=== PATIENT | female | born 1970 | race Caucasian/White ===

== ENCOUNTER → 2017-11-04 | Outpatient (CLI) | payer OTHER ==
[~2017-11-04] MED LIST: DARVOCET-N 1001 EACH PO; LEXAPRO20 MG; METHOTREXATE; PEPCID40 MG PO; PHENERGAN 25 MG25 M1 PO; REMICADE 1100 MG/VIA
--- NOTE | 2017-11-04 15:48 | 2DMMODE ---
[place] [address] 2 D/M-MODE ECHOCARDIOGRAM Name: HUNTERKRYSTAL Room: [facility]#: [id number] Admission: 11/04/17 Attend Phys: Jason Samaniego, Discharge: Date of : 70 Date of Service: 11/04/17 1548 Report #: [id number] THIS REPORT FOR: //name// APPROVED REPORT Study performed: 11/04/2017 09:56:51 EXAM: Comprehensive 2D, Doppler, and color-flow Echocardiogram Patient Location: Out-Patient Status: routine BSA: 2.20 HR: 75 bpm BP: 130/80 mmHg Other Information Study Quality: Good Indications Dyspnea Chest Pain 2D Dimensions LVEF(%): 74.94 (>50%) IVSd: 10.12 (7-11mm) LVOT Diam: 19.86 (18-24mm) LVDd: 47.31 mm PWd: 8.37 (7-11mm) Ascending Ao: 27.08 (22-36mm) LVDs: 26.60 (25-40mm) Aortic Root: 21.19 mm Sharp's LVEF: 74.94 % Volumes Left Atrial Volume (Systole) LA ESV Index: 17.50 mL/m2 Aortic Valve AoV Peak Juan Daniel.: 1.65 m/s AO Peak Gr.: 10.89 mmHg LVOT Max P.86 mmHg AO Mean Gr.: 5.62 mmHg LVOT Mean P.51 mmHg LVOT Max V: 1.21 m/s AO V2 VTI: 30.23 cm LVOT Mean V: 0.71 m/s ECTOR (VTI): 2.70 cm2 LVOT V1 VTI: 26.31 cm Mitral Valve E/A Ratio: 1.44 [place] [address] 2 D/M-MODE ECHOCARDIOGRAM Name: KRYSTAL HUNTER Room: [facility]#: [id number] Admission: 11/04/17 Attend Phys: Jason Samaniego, Discharge: Date of : 70 Date of Service: 11/04/17 1548 Report #: [id number] MV Decel. Time: 180.26 ms MV E Max Juan Daniel.: 1.07 m/s MV PHT: 52.28 ms MVA (PHT): 4.21 cm2 TDI E/Lateral E': 8.92 E/Medial E': 9.73 Medial E' Juan Daniel.: 0.11 m/s Lateral E' Juan Daniel.: 0.12 m/s Pulmonary Valve PV Peak Juan Daniel.: 1.25 m/s PV Peak Gr.: 6.25 mmHg Tricuspid Valve TR Peak Gr.: 25.85 mmHg RVSP: 30.85 mmHg Left Ventricle The left ventricle is normal size. There is normal LV segmental wall motion. There is normal left ventricular wall thickness. Left ventricular systolic function is normal. The left ventricular ejection fraction is within the normal range. LVEF is 55-60%. The left ventricular diastolic function is normal. Right Ventricle The right ventricle is normal size. The right ventricular systolic function is normal. Atria The left atrium size is normal. The right atrium size is normal. Aortic Valve The aortic valve is normal in structure. No aortic regurgitation is present. There is no aortic valvular stenosis. Mitral Valve The mitral valve is normal in structure. Trace mitral regurgitation. No evidence of mitral valve stenosis. Tricuspid Valve The tricuspid valve is normal in structure. Mild tricuspid regurgitation. The RVSP is _30.9 mmHg. Pulmonic Valve The pulmonary valve is normal in structure. There is no [place]mon[place] [address] 2 D/M-MODE ECHOCARDIOGRAM Name: KRYSTAL HUNTER Room: [facility]#: [id number] Admission: 11/04/17 Attend Phys: Jason Samaniego, Discharge: Date of : 70 Date of Service: 11/04/17 1548 Report #: [id number] Great Vessels The aortic root is normal in size. IVC is normal in size and collapses with >50% inspiration Pericardium There is no pericardial effusion. <Conclusion> The left ventricle is normal size. There is normal left ventricular wall thickness. Left ventricular systolic function is normal. The left ventricular ejection fraction is within the normal range. LVEF is 55-60%. The left ventricular diastolic function is normal. The right ventricle is normal size. The left atrium size is normal. The aortic valve is normal in structure. The mitral valve is normal in structure. Trace mitral regurgitation. The tricuspid valve is normal in structure. Mild tricuspid regurgitation. The RVSP is _30.9 mmHg. IVC is normal in size and collapses with >50% inspiration There is no pericardial effusion. There is normal LV segmental wall motion. <ELECTRONICALLY SIGNED> By: Chucky Reaves MD, FACC 11/04/17 1548 1548 1548 Chucky Reaves MD, FACC /INF
--- NOTE | 2017-11-07 12:24 | TST ---
[place] [address] TREADMILL STRESS TEST Name: DALEKRYSTALCHAPO PRESCOTT Room: [facility]#: [id number] Admission: 11/04/17 Attend Phys: Jason Samaniego, Discharge: Date of : 70 Date of Service: 11/04/17 1552 Report #: [id number] THIS REPORT FOR: //name// CC: Jason Samaniego MD DATE OF SERVICE: 11/04/2017 Resting 12-lead electrocardiogram demonstrates sinus rhythm, is within normal limits. The patient exercised for 4 minutes according to a standard Dorian protocol, stopping because of shortness of breath, but denying chest pain. The patient achieved a peak heart rate of 152, 87% of the age predicted maximum. Resting blood pressure is 125/76. It increased to 184/59 during exercise with a fall to 147/69 during the post-exercise phase. There were no ischemic ST-T alterations noted during or post-exercise. There were no significant supraventricular or ventricular arrhythmias. IMPRESSION: 1. Negative treadmill exercise test for provocation of ischemic ST-T alterations. 2. No chest pain provoked by exertion. 3. Minimally blunted peak heart rate response to exercise. 4. Appropriate increase in systolic blood pressure provoked by exertion. 5. No significant arrhythmias noted. 6. Reduced level of fitness for age. <ELECTRONICALLY SIGNED> By: Chucky Reaves MD, [facility] 11/07/17 [id number] 1552 1936 Chucky Reaves MD, [facility] /nt
== END ==
LOC: M.CRD 10-29 13:32
DX: I07.1 Rheumatic tricuspid insufficiency (principal)

== ENCOUNTER → 2017-12-01 | Outpatient (CLI) | payer OTHER ==
--- NOTE | 2017-12-04 12:12 | PF ---
[address] [address] PULMONARY FUNCTION REPORT Name: KRYSTAL HUNTER Room: [facility] Yue.#: [id number] Admission: 12/01/17 Attend Phys: Jason Samaniego MD Discharge: Date of : 70 Report #: [id number] THIS REPORT FOR: //name// CC: Jason Samaniego DATE OF SERVICE: 12/01/2017 ATTENDING PHYSICIAN: Dr. Samaniego Spirometry is within normal limits. No improvement after bronchodilator is noted. Post-bronchodilator studies show an FEV1 of 2.2 and FVC of 2.6, ratio is 83%, FEV1 79% of predicted, FVC is 76% of predicted. Total lung capacity and vital capacity were both 80% of predicted. Diffusion is 84% of predicted. IMPRESSION: Normal ventilatory studies. <ELECTRONICALLY SIGNED> By: Winston Sebastian MD 12/04/17 1212 1434 [id number] Sebastian MD /nt
== END ==
LOC: M.PUL 09:30
DX: R06.02 Shortness of breath (principal)

== ENCOUNTER → 2017-12-24 | Outpatient (CLI) | payer OTHER | LOC: M.CT 09:30 | DX: R06.02 Shortness of breath (principal); R07.9 Chest pain, unspecified ==